=== PATIENT | male | born 1965 | race Caucasian/White ===

== ENCOUNTER 2016-07-28 22:57 | Emergency (ER) | payer SELFPAY ==
[2016-07-28 23:31] LABS: EOSINOPHILS % 2.2 % (0.0-6.8); MEAN CORPUSCULAR HEMOGLOBIN 30.8 pg (28.0-34.0); MEAN CORPUSCULAR VOLUME 89.9 fl (80.0-100.0); MONOCYTES % 4.6 % (0.0-11.0)
[2016-07-28 23:43] LABS: eGFR (African) > 60; eGFR (Non-African) > 60
--- NOTE | 2016-07-29 00:15 | ED Physician Documentation ---
Chest Pain - HISTORIAN Historian: patient, spouse - HPI Stated Complaint: chest pain t Chief Complaint: Chest Pain Additional Information: 2 episodes very brief sharp mid chest pains lasting 3-5 seconds each-totally gone after that and now. pt has hx ihd w/stent Onset: hours Timing: sudden onset, gone now, resolved on arrival to ED Duration: other (3-5 sec) Last known Well Date: 07/29/16 Last Known Well Time: 22:00 Context: onset during: (on way to bed) Severity: mild, moderate Quality: sharp, stabbing. denies: like prior [place] Chest Pain Radiation: no radiation Chest Pain Signs/Symptoms: denies: nausea, vomiting, diaphoresis, cool extremities, dyspnea - ROS CONST: no problems (ran bobcat all day today) MS/LYMPH: none GI/: none EYES/ENT: none SKIN/ENDO: none NEURO/PSYCH: none - PAST HX [place] risk factors: cardiac disease DVT/PE Risk Factors: denies: leg swelling Neuro deficit: none GI disease: GERD Surgeries/Procedures: cardiac stent Allergies/Adverse Reactions: Allergies Allergy/AdvReac Type Severity Reaction Status Date / Time No Known Allergies Allergy Verified 07/28/16 23:20 Home Medications: Ambulatory Orders Medication Instructions Recorded Aspirin [Panchito] 81 mg PO DAILY 09/20/15 Atorvastatin Calcium [Lipitor] 80 mg PO HS 09/20/15 Clopidogrel Bisulfate [Plavix] 75 mg PO QD 09/20/15 Fenofibrate,Micronized 130 mg PO QDAY 07/28/16 [Fenofibrate] - SOCIAL HX Smoking History: greater than 1 pack/day Alcohol Use: rarely Drug Use: none - FAMILY HX Family HX: none - VITAL SIGNS Vital Signs: Vital Signs Temp Pulse Resp BP Pulse Ox 97.5 F L 55 L 16 144/77 96 07/28/16 23:05 07/28/16 23:30 07/28/16 23:05 07/28/16 23:05 07/28/16 23:30 - REVIEWED ASSESSMENTS Nursing Assessment Reviewed: Yes Vitals Reviewed: Yes ED Results Lab/Radiology - Lab Results Lab Results: Lab Results 07/28/16 07/28/16 07/28/16 23:24 23:24 23:23 WBC 9.50 K/ul K/ul (4.00-12.00) RBC 4.82 M/ul M/ul (3.90-5.20) Hgb 14.9 g/dL g/dL (12.0-18.0) Hct 43.3 % % (37.0-53.0) MCV 89.9 fl fl (80.0-100.0) MCH 30.8 pg pg (28.0-34.0) MCHC 34.3 g/dL g/dL (30.0-36.0) RDW 13.1 % % (11.3-14.3) Plt Count 259 K/mm3 K/mm3 (130-400) Neut % (Auto) 63.0 % % (39.0-79.0) Lymph % (Auto) 27.8 % % (16.0-50.0) [place] % (Auto) 4.6 % % (0.0-11.0) Eos % (Auto) 2.2 % % (0.0-6.8) Baso % (Auto) 1.0 (0.0-1.5) Neut # 6.0 # k/uL # k/uL (1.4-7.7) Lymph # 2.6 # k/uL # k/uL (0.6-4.0) [place] # 0.4 # k/uL # k/uL (0.0-0.9) Eos # 0.2 # k/uL # k/uL (0.0-0.6) Baso # 0.1 # k/uL # k/uL (0.0-0.5) Reactive Lymphs % 1.5 % % (0.0-5.0) Reactive Lymphs # 0.1 # k/uL # k/uL (0.0-0.8) PT INR Sodium 142 mmol/L mmol/L (136-145) Potassium 3.5 mmol/L mmol/L (3.5-5.0) Chloride 107 mmol/L mmol/L (98-110) Carbon Dioxide 29 mmol/L mmol/L (20-32) BUN 12 mg/dL mg/dL (10-26) Creatinine 0.8 mg/dL mg/dL (0.4-1.5) Estimated Creat Clear 136 Est GFR ( Amer) > 60 (60 - ) Est GFR (Non-Af Amer) > 60 (60 - ) Glucose 107 mg/dL H mg/dL (70-99) Calcium 9.3 mg/dL mg/dL (8.5-10.5) Total Bilirubin 0.2 mg/dL mg/dL (0.2-1.2) AST 26 U/L U/L (0-41) ALT 20 U/L U/L (0-45) Alkaline Phosphatase 71 U/L U/L (46-116) Troponin I < 0.03 ng/mL L ng/mL (0.03-0.06) Total Protein 7.6 g/dL g/dL (6.0-8.5) Albumin 4.7 g/dL g/dL (3.0-5.5) 07/28/16 23:20 WBC RBC Hgb Hct MCV MCH MCHC RDW Plt Count Neut % (Auto) Lymph % (Auto) [place] % (Auto) Eos % (Auto) Baso % (Auto) Neut # Lymph # [place] # Eos # Baso # Reactive Lymphs % Reactive Lymphs # PT 10.1 Seconds Seconds (9.7-11.5) INR 1.0 (0.9-1.1) Sodium Potassium Chloride Carbon Dioxide BUN Creatinine Estimated Creat Clear Est GFR ( Amer) Est GFR (Non-Af Amer) Glucose Calcium Total Bilirubin AST ALT Alkaline Phosphatase Troponin I Total Protein Albumin - Radiology Radiology Impressions: copd - Orders Orders: ED Orders Category Date Time Status Continuous EKG monitoring Q1H Care 07/28/16 23:39 Active Continuous Pulse Oximetry Q1H Care 07/28/16 23:39 Active CHEST 2 VIEW [CHEST P.A.&LAT 2 VIEWS] [RAD] Stat Exams 07/28/16 Ordered CBC/PLATELET/DIFF Routine Lab 07/28/16 23:24 Completed CMP Routine Lab 07/28/16 23:24 Completed PT-INR Routine Lab 07/28/16 23:20 Completed TROPONIN I (cTnI) Stat Lab 07/28/16 23:23 Completed EKG WITH COMPARISON Stat Ther 07/28/16 Ordered Chest Pain Physical Exam - EXAM General Appearance: no acute distress, anxious EENT: eye inspection normal Neck: nml inspection (very slight jvd) CVS: reg. rate & rhythm, no murmur Abdomen: soft, non-tender Skin: warm/dry, normal color. No: cyanosis, diaphoresis, jaundice, mottled Extremities: non-tender, normal range of motion, no edema Neuro: oriented X3, motor nml, sensation nml, mood/affect nml Discharge Clincal Impression: Atypical chest pain Referrals: Primary Doctor,No [Primary Care Provider] - 2 Days Home Medications: Ambulatory Orders Aspirin [Panchito] 81 mg PO DAILY 09/20/15 Atorvastatin Calcium [Lipitor] 80 mg PO HS 09/20/15 Clopidogrel Bisulfate [Plavix] 75 mg PO QD 09/20/15 Fenofibrate,Micronized [Fenofibrate] 130 mg PO QDAY 07/28/16 Condition: Good Disposition: 01 HOME, SELF-CARE Decision to Admit: NO Decision Time: 00:14
[2016-07-29 00:18] VITALS: BP 131/68
--- NOTE | 2016-07-29 05:30 | Diagnostic Imaging Report ---
SARABJIT MARIE [facility] [address] [facility].[address] 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 There is no mass infiltrate or pleural effusions. Thoracic spondylosis is present. There is resection of the distal right clavicle. Calcified granulomas are present in the right midlung. Impression: Hyperinflation No acute infiltrate Electronically signed on July 28, 2016 11:51:03 PM CDT by: Omega YATES
== END 2016-07-29 00:05 | disposition home or self-care (01) ==
LOC: ED 22:57
DX: R07.89 Other chest pain (principal); F17.210 Nicotine dependence, cigarettes, uncomplicated
CPT/HCPCS: 71020; 80053; 84484; 85025; 85610; 99283; 99284; S1016

== ENCOUNTER 2016-09-07 00:39 | Emergency (ER) | payer SELFPAY ==
[2016-09-07] MEDS ORDERED: ASPIRIN 81 MG CHEW TAB ONE (00:48)
[2016-09-07] MEDS: ASPIRIN 81 MG CHEW TAB PO ONE (00:50)
[2016-09-07 01:19] LABS: BASOPHILS % 0.8 (0.0-1.5); EOSINOPHILS % 2.7 % (0.0-6.8); MEAN CORPUSCULAR HEMOGLOBIN 30.8 pg (28.0-34.0); MEAN CORPUSCULAR VOLUME 89.9 fl (80.0-100.0); MONOCYTES % 5.4 % (0.0-11.0); NEUTROPHILS # 5.6 # k/uL (1.4-7.7)
[2016-09-07 01:31] LABS: eGFR (African) > 60; eGFR (Non-African) > 60
--- NOTE | 2016-09-07 02:28 | ED Physician Documentation ---
Chest Pain - HISTORIAN Historian: patient - HPI Stated Complaint: chest pain Chief Complaint: Chest Pain Additional Information: just switched from omeprazole to 150 mg zantac for gerd yesterday, not working as well Onset: minutes (60) Timing: sudden onset Duration: sudden-onset Last known Well Date: 09/07/16 Last Known Well Time: 00:00 Context: activity Severity: moderate Quality: burning Chest Pain Radiation: neck (anterior) Chest Pain Signs/Symptoms: denies: nausea, vomiting, diaphoresis, dizziness, dyspnea, tachypnea Worsened By: movement Relieved By: nothing Further Comments: no - ROS CONST: none MS/LYMPH: none GI/: none EYES/ENT: none SKIN/ENDO: none NEURO/PSYCH: none - PAST HX [place] risk factors: hypertension, other (hx of mi, asthma, depression) GI disease: GERD Lung disease: none Allergies/Adverse Reactions: Allergies Allergy/AdvReac Type Severity Reaction Status Date / Time No Known Allergies Allergy Verified 09/07/16 00:51 Home Medications: Ambulatory Orders Medication Instructions Recorded Aspirin [Panchito] 81 mg PO DAILY 09/20/15 Atorvastatin Calcium [Lipitor] 80 mg PO HS 09/20/15 Clopidogrel Bisulfate [Plavix] 75 mg PO QD 09/20/15 Fenofibrate,Micronized 130 mg PO QDAY 07/28/16 [Fenofibrate] Albuterol Sulfate [Proair HFA] 1 inh IH QDAY PRN 09/07/16 Ranitidine HCl 150 mg PO QDAY 09/07/16 - SOCIAL HX Smoking History: cigarettes Alcohol Use: none Drug Use: none - FAMILY HX Family HX: none - VITAL SIGNS Vital Signs: Vital Signs Temp Pulse Resp BP Pulse Ox 97.8 F 66 16 183/72 95 09/07/16 00:40 09/07/16 01:30 09/07/16 00:40 09/07/16 00:40 09/07/16 01:30 - REVIEWED ASSESSMENTS Nursing Assessment Reviewed: Yes Vitals Reviewed: Yes Progress - Results/Orders Results/Orders: cbc, cmp, trop, ekg, cxr ordered - Progress Progress: pt. given asa 324 mg p.o. in er Critical Care Note - Critical Care Note Total Time (mins): 0 ED Results Lab/Radiology - Lab Results Lab Results: Lab Results 09/07/16 09/07/16 09/07/16 01:14 01:14 01:14 WBC 8.80 K/ul K/ul (4.00-12.00) RBC 4.70 M/ul M/ul (3.90-5.20) Hgb 14.5 g/dL g/dL (12.0-18.0) Hct 42.2 % % (37.0-53.0) MCV 89.9 fl fl (80.0-100.0) MCH 30.8 pg pg (28.0-34.0) MCHC 34.3 g/dL g/dL (30.0-36.0) RDW 13.5 % % (11.3-14.3) Plt Count 253 K/mm3 K/mm3 (130-400) Neut % (Auto) 64.5 % % (39.0-79.0) Lymph % (Auto) 24.8 % % (16.0-50.0) [place] % (Auto) 5.4 % % (0.0-11.0) Eos % (Auto) 2.7 % % (0.0-6.8) Baso % (Auto) 0.8 (0.0-1.5) Neut # (Auto) 5.6 # k/uL # k/uL (1.4-7.7) Lymph # (Auto) 2.2 # k/uL # k/uL (0.6-4.0) [place] # (Auto) 0.5 # k/uL # k/uL (0.0-0.9) Eos # (Auto) 0.2 # k/uL # k/uL (0.0-0.6) Baso # (Auto) 0.1 # k/uL # k/uL (0.0-0.5) Reactive Lymphs % 1.8 % % (0.0-5.0) Reactive Lymphs # 0.2 # k/uL # k/uL (0.0-0.8) Sodium 145 mmol/L mmol/L (136-145) Potassium 3.6 mmol/L mmol/L (3.5-5.0) Chloride 107 mmol/L mmol/L (98-110) Carbon Dioxide 30 mmol/L mmol/L (20-32) BUN 17 mg/dL mg/dL (10-26) Creatinine 1.0 mg/dL mg/dL (0.4-1.5) Estimated Creat Clear 110 Est GFR ( Amer) > 60 (60 - ) Est GFR (Non-Af Amer) > 60 (60 - ) Glucose 143 mg/dL H mg/dL (70-99) Calcium 9.7 mg/dL mg/dL (8.5-10.5) Total Bilirubin 0.3 mg/dL mg/dL (0.2-1.2) AST 22 U/L U/L (0-41) ALT 19 U/L U/L (0-45) Alkaline Phosphatase 79 U/L U/L (46-116) Troponin I < 0.03 ng/mL L ng/mL (0.03-0.06) Total Protein 7.4 g/dL g/dL (6.0-8.5) Albumin 4.8 g/dL g/dL (3.0-5.5) - Radiology Radiology Impressions: cxr neg - Orders Orders: ED Orders Category Date Time Status Continuous EKG monitoring Q30M Care 09/07/16 00:47 Active Continuous Pulse Oximetry Q30M Care 09/07/16 00:[address] IV Lock 1T Care 09/07/16 01:02 Active CHEST 1 VIEW [RAD] Stat Exams 09/07/16 00:47 Ordered CBC/PLATELET/DIFF Routine Lab 09/07/16 01:14 Completed CMP Routine Lab 09/07/16 01:14 Completed TROPONIN I (cTnI) Stat Lab 09/07/16 01:14 Completed Aspirin Med 09/07/16 00:48 Discontinued 324 mg .ROUTE .STK-MED ONE Aspirin Med 09/07/16 00:47 Discontinued 324 mg PO NOW ONE EKG WITH COMPARISON Stat Ther 09/07/16 00:47 Ordered Chest Pain Physical Exam - EXAM General Appearance: no acute distress, alert EENT: eye inspection normal, ENT inspection normal, pharynx normal, no signs of dehydration, VANESSA, no nystagmus Neck: nml inspection, no carotid bruit Respiratory: no resp. distress, nml breath sounds, other (tenderness lower midsternal area reproducing chest pain) CVS: reg. rate & rhythm Abdomen: soft, no organomegaly, normal bowel sounds, no abdominal bruit, no distension, tenderness (epigastrium) Skin: warm/dry, normal color Extremities: non-tender, normal range of motion, no evidence of injury, no edema Neuro: oriented X3, CN's nml as tested, motor nml, sensation nml, mood/affect nml, cognition normal Discharge Clincal Impression: GERD (gastroesophageal reflux disease) Qualifiers: Esophagitis presence: with esophagitis Qualified Code(s): K21.0 - Gastro- esophageal reflux disease with esophagitis Referrals: Primary Doctor,No [Primary Care Provider] - 2 Days Home Medications: Ambulatory Orders Aspirin [Panchito] 81 mg PO DAILY 09/20/15 Atorvastatin Calcium [Lipitor] 80 mg PO HS 09/20/15 Clopidogrel Bisulfate [Plavix] 75 mg PO QD 09/20/15 Fenofibrate,Micronized [Fenofibrate] 130 mg PO QDAY 07/28/16 Albuterol Sulfate [Proair HFA] 1 inh IH QDAY PRN 09/07/16 Ranitidine HCl 150 mg PO QDAY 09/07/16 Comments: pt. discharged with recommendation to continue ranitidine and discuss with his primary care provider on Friday Condition: Stable Disposition: HOME, SELF-CARE Decision to Admit: NO Decision Time: 01:50
[2016-09-07 02:29] VITALS: BP 146/74
--- NOTE | 2016-09-07 06:24 | Diagnostic Imaging Report ---
GELACIO DUNAWAY~ [facility] [address] [facility].[address] [address] ~ ~ ~ ~ Report Submission Date: Sep 07, 2016 1:29:13 AM CDT Patient ~ Study Name: STEPHEN AZUL ~ Date: Sep 07, 2016 1:17:17 AM CDT ~ Modality Type: CR Gender: M ~ Description: CHEST : 63 ~ Institution: [facility] Physician: GELACIO DUNAWAY ~ ~ ~ ~ Portable chest History: Chest pain Findings: The lungs are clear. No pleural effusions are observed. Calcified granulomas are noted. Heart size and pulmonary vascularity are normal. Impression: Old granulomatous disease without acute abnormality. No change since the 07/28/2016 exam. ~ Electronically signed on Sep 07, 2016 1:29:13 AM CDT by: José Luis YATES
== END 2016-09-07 02:00 | disposition home or self-care (01) ==
LOC: ED 00:39
DX: K21.0 Gastro-esophageal reflux disease with esophagitis (principal)
CPT/HCPCS: 71010; 80053; 84484; 85025; 99283; S1016

== ENCOUNTER 2016-10-09 04:47 | Emergency (ER) | payer SELFPAY ==
[2016-10-09 05:10] VITALS: BP 137/75
[2016-10-09] MEDS ORDERED: CEPHALEXIN 250 MG CAPSULE PO ONE (05:13)
[2016-10-09] MEDS ORDERED: HYDROcodone /APAP 5/325 1 EACH TABLET PO ONE (05:13)
[2016-10-09] MEDS ORDERED: CEPHALEXIN 250 MG CAPSULE ONE (05:15)
--- NOTE | 2016-10-09 05:16 | ED Physician Documentation ---
General Adult - HISTORIAN Historian: patient - HPI Stated Complaint: Right upper tooth pain Chief Complaint: Dental Pain Onset: days ago Timing: still present Severity: moderate Further Comments: yes (Pt is a 51 yo male with dental pain that began yesterday. Pt has poor dentition. No fever.) - ROS CONST: no problems EYES/ENT: other (dental pain) CVS/RESP: none GI/: none MS/SKIN/LYMPH: none - PAST HX Past History: other (HTN, MD, Asthma, Depression, GERD.) Allergies/Adverse Reactions: Allergies Allergy/AdvReac Type Severity Reaction Status Date / Time No Known Allergies Allergy Verified 10/09/16 05:03 Home Medications: Ambulatory Orders Medication Instructions Recorded Aspirin [Panchito] 81 mg PO DAILY 09/20/15 Atorvastatin Calcium [Lipitor] 80 mg PO HS 09/20/15 Clopidogrel Bisulfate [Plavix] 75 mg PO QD 09/20/15 Fenofibrate,Micronized 130 mg PO QDAY 07/28/16 [Fenofibrate] Albuterol Sulfate [Proair HFA] 1 inh IH QDAY PRN 09/07/16 Ranitidine HCl 150 mg PO QDAY 09/07/16 - SOCIAL HX Smoking History: cigarettes - FAMILY HX Family History: No - VITAL SIGNS Vital Signs: Vital Signs Temp Pulse Resp BP Pulse Ox 99.6 F 63 16 137/75 93 10/09/16 04:58 10/09/16 04:58 10/09/16 04:58 10/09/16 04:58 10/09/16 04:58 - REVIEWED ASSESSMENTS Nursing Assessment Reviewed: Yes Vitals Reviewed: Yes Progress - Progress Progress: Rx Keflex 500 mg. Take one every 8 hrs for 10 days. Rx [place] (5/325). Take one or two every 4 to 6 hrs as needed for moderate to severe pain. Pt has dental appt on 10/15/16. ED Results Lab/Radiology - Orders Orders: ED Orders Category Date Time Status Cephalexin [Keflex] Med 10/09/16 05:13 Once 500 mg PO NOW ONE HYDROcodone /APAP 5/325 [[place] 5/325] Med 10/09/16 05:13 Once 2 each PO NOW ONE General Adult Physical Exam - PHYSICAL EXAM GENERAL APPEARANCE: mild distress EENT: other (poor dentition; tenderness R upper jaw) NECK: normal inspection, supple RESPIRATORY: no resp distress, chest non-tender, breath sounds normal CVS: reg rate & rhythm BACK: normal inspection SKIN: warm/dry EXTREMITIES: normal range of motion NEURO: oriented X3 Discharge Clincal Impression: Dental pain Referrals: Ana Ascencio MD [Primary Care Provider] - Home Medications: Ambulatory Orders Aspirin [Panchito] 81 mg PO DAILY 09/20/15 Atorvastatin Calcium [Lipitor] 80 mg PO HS 09/20/15 Clopidogrel Bisulfate [Plavix] 75 mg PO QD 09/20/15 Fenofibrate,Micronized [Fenofibrate] 130 mg PO QDAY 07/28/16 Albuterol Sulfate [Proair HFA] 1 inh IH QDAY PRN 09/07/16 Ranitidine HCl 150 mg PO QDAY 09/07/16 Condition: Good Disposition: 01 HOME, SELF-CARE Decision to Admit: NO Decision Time: 05:22
== END 2016-10-09 05:25 | disposition home or self-care (01) ==
LOC: ED 04:47
DX: K08.89 Other specified disorders of teeth and supporting structures (principal)
CPT/HCPCS: 99283; A9270-GY

== ENCOUNTER 2016-12-14 22:22 | Emergency (ER) | payer SELFPAY ==
--- NOTE | 2016-12-14 22:54 | ED Physician Documentation ---
General Adult - HISTORIAN Historian: patient, spouse - HPI Stated Complaint: chest pain Chief Complaint: General Adult Further Comments: yes (51 year old male patient present with complaints of intermittent chest pain for the past 3 days. Patient has not used his nitroglycerin SL. Denies SOB, diaphoresis or nausea. Cannot recall when pain started. Worse with palpation.) - ROS CONST: no problems EYES/ENT: none CVS/RESP: none GI/: none MS/SKIN/LYMPH: none NEURO/PSYCH: denies: headache - PAST HX Past History: COPD, hypertension, other (HLD, hx [place], GERD) Allergies/Adverse Reactions: Allergies Allergy/AdvReac Type Severity Reaction Status Date / Time No Known Allergies Allergy Verified 12/14/16 23:01 Home Medications: Ambulatory Orders Medication Instructions Recorded Aspirin [Panchito] 81 mg PO DAILY 09/20/15 Atorvastatin Calcium [Lipitor] 80 mg PO HS 09/20/15 Clopidogrel Bisulfate [Plavix] 75 mg PO QD 09/20/15 Fenofibrate,Micronized 130 mg PO QDAY 07/28/16 [Fenofibrate] Albuterol Sulfate [Proair HFA] 1 inh IH QDAY PRN 09/07/16 Lansoprazole [Heartburn Treatment 15 mg PO D 12/14/16 24 Hour] - SOCIAL HX Smoking History: cigarettes - FAMILY HX Family History: No - VITAL SIGNS Vital Signs: Vital Signs Temp Pulse Resp BP Pulse Ox 137/75 10/09/16 04:58 - REVIEWED ASSESSMENTS Nursing Assessment Reviewed: Yes Vitals Reviewed: Yes Progress - Progress Progress: Extremely poor personal hygiene. Patient states he does not take his PRN nitroglycerin at home. states patient gets anxious any time he has CP. Offered pain injection. Patient refused. - EKG/XRAY/CT EKG: rhythm (SR, rate 70, no acute changes) ED Results Lab/Radiology - Radiology Radiology Impressions: Chest 2 views History: Chest pain Findings: The distal right clavicle has been resected. Scattered calcified granulomas are observed. The lungs are otherwise clear. There is no pleural effusion. Heart size and pulmonary vascularity are normal. A noncalcified nodule or right nipple shadow projects between the right anterior 5th and 6th ribs. This is new since the September 07, 2016 film. Impression: 1. New noncalcified right lung nodule versus nipple shadow. Recommend a PA chest radiograph with right nipple marker. 2. Old granulomatous disease again noted. Electronically signed on Dec 14, 2016 11:14:59 PM CDT by: José Luis London Single view chest with nipple markers History: Right lung nodule versus a nipple shadow Findings: A right nipple shadow is confirmed as the etiology for the nodular opacity observed on the preceding chest radiograph. A left nipple shadow is also noted. Calcified granulomas and distal right clavicle resection are observed. Heart size is normal. There is no infiltrate or pleural effusion. Impression: Bilateral nipple shadows and old granulomatous disease. No lung nodule observed. Electronically signed on Dec 14, 2016 11:44:48 PM CDT by: José Luis London - Orders Orders: ED Orders Category Date Time Status CHEST 2 VIEW [CHEST P.A.&LAT 2 VIEWS] [RAD] Stat Exams 12/14/16 Ordered TROPONIN I (cTnI) Stat Lab 12/14/16 22:44 Received General Adult Physical Exam - PHYSICAL EXAM GENERAL APPEARANCE: mild distress EENT: eye inspection normal, VANESSA RESPIRATORY: no resp distress, breath sounds normal, other (chest wall tenderness to palpation) CVS: reg rate & rhythm, heart sounds normal, equal pulses, no murmur, no gallop , PMI nml, no JVD, no friction rub, 24 ABDOMEN: soft, no organomegaly, normal bowel sounds, no abdominal bruit, no distension BACK: normal inspection, no CVA tenderness SKIN: normal color, warm/dry, NR, INT, PAL, DR EXTREMITIES: non-tender, normal range of motion, no evidence of injury, no edema , J, [employer] MAINTENANCE SUPERVISOR NEURO: oriented X3, CN's nml as tested, motor nml, sensation nml, mood/affect nml Discharge Clincal Impression: Non-cardiac chest pain, Myalgia Referrals: Ana Ascencio MD [Primary Care Provider] - 2 Days Additional Instructions: Rest You may use Tylenol every 4hour as needed for pain. Limit your dose to less than 4 G per day. Return to Er if you have Chest pain WITH shortness of breath, pain radiates to your jaw or shoulders, diaphoresis, and nausea and vomiting Condition: Stable Disposition: 01 HOME, SELF-CARE Decision to Admit: NO Decision Time: 23:48
--- NOTE | 2016-12-14 23:19 | Diagnostic Imaging Report ---
CJ MENDEZ (SUNITHA) - ER [facility] [address] [facility].[address] [address] Report Submission Date: Dec 14, 2016 11:14:59 PM CDT Patient Study Name: STEPHEN AZUL Date: Dec 14, 2016 10:51:52 PM CDT Modality Type: CR Gender: M Description: CHEST : 63 Institution: [facility] Physician: CJ MENDEZ (SUNITHA) - ER Chest 2 views History: Chest pain Findings: The distal right clavicle has been resected. Scattered calcified granulomas are observed. The lungs are otherwise clear. There is no pleural effusion. Heart size and pulmonary vascularity are normal. A noncalcified nodule or right nipple shadow projects between the right anterior 5th and 6th ribs. This is new since the September 07, 2016 film. Impression: 1. New noncalcified right lung nodule versus nipple shadow. Recommend a PA chest radiograph with right nipple marker. 2. Old granulomatous disease again noted. Electronically signed on Dec 14, 2016 11:14:59 PM CDT by: José Luis YATES
--- NOTE | 2016-12-14 23:47 | Diagnostic Imaging Report ---
CJ MENDEZ (SUNITHA) - ER [facility] [address] [address] Report Submission Date: Dec 14, 2016 11:44:48 PM CDT Patient Study Name: STEPHEN AZUL Date: Dec 14, 2016 11:21:09 PM CDT Modality Type: CR Gender: M Description: CHEST : 63 Institution: [facility] Physician: CJ MENDEZ) - ER Single view chest with nipple markers History: Right lung nodule versus a nipple shadow Findings: A right nipple shadow is confirmed as the etiology for the nodular opacity observed on the preceding chest radiograph. A left nipple shadow is also noted. Calcified granulomas and distal right clavicle resection are observed. Heart size is normal. There is no infiltrate or pleural effusion. Impression: Bilateral nipple shadows and old granulomatous disease. No lung nodule observed. Electronically signed on Dec 14, 2016 11:44:48 PM CDT by: José Luis YATES
[2016-12-15 00:03] VITALS: BP 137/82
== END 2016-12-14 23:55 | disposition home or self-care (01) ==
LOC: ED 22:22
DX: R07.89 Other chest pain (principal); M79.1 Myalgia
CPT/HCPCS: 71010; 71020; 84484; 99283; S1016

== ENCOUNTER 2017-06-05 21:11 | Emergency (ER) | payer SELFPAY ==
[2017-06-05 21:30] LABS: BASOPHILS % 0.8 (0.0-1.5); EOSINOPHILS % 3.3 % (0.0-6.8); MEAN CORPUSCULAR VOLUME 89.9 fl (80.0-100.0); MONOCYTES % 4.9 % (0.0-11.0); NEUTROPHILS # 5.4 # k/uL (1.4-7.7)
[2017-06-05 21:42] LABS: eGFR (African) > 60; eGFR (Non-African) > 60
--- NOTE | 2017-06-05 21:52 | ED Physician Documentation ---
Chest Pain - HISTORIAN Historian: patient, spouse - HPI Stated Complaint: CHEST PAIN Chief Complaint: Chest Pain Onset: minutes Timing: sudden onset Last known Well Date: 06/05/17 Last Known Well Time: 20:00 Context: rest (sitting in chair) Severity: mild Quality: denies: like prior CA Chest Pain Radiation: no radiation Chest Pain Signs/Symptoms: denies: nausea, vomiting, diaphoresis Worsened By: nothing Relieved By: nothing Further Comments: yes (52 year old male patient presents with complaint of pain in upper chest. Patient states he was sitting in the chair watch TV when the pain began. He took 5 baby aspirin and 1 nitro. On arrival to ER, patient denies any pain. 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) Allergies/Adverse Reactions: Allergies Allergy/AdvReac Type Severity Reaction Status Date / Time No Known Allergies Allergy Verified 06/05/17 21:33 Home Medications: Ambulatory Orders Medication Instructions Recorded Aspirin [Panchito] 81 mg PO DAILY 09/20/15 Atorvastatin Calcium [Lipitor] 80 mg PO HS 09/20/15 Clopidogrel Bisulfate [Plavix] 75 mg PO QD 09/20/15 Fenofibrate,Micronized 130 mg PO QDAY 07/28/16 [Fenofibrate] Albuterol Sulfate [Proair HFA] 1 inh IH QDAY PRN 09/07/16 Lansoprazole [Heartburn Treatment 15 mg PO D 12/14/16 24 Hour] - SOCIAL HX Smoking History: cigarettes - FAMILY HX Family HX: denies: none - VITAL SIGNS Vital Signs: Vital Signs Temp Pulse Resp BP Pulse Ox 98.2 F 65 18 141/74 97 06/05/17 21:12 06/05/17 21:20 06/05/17 21:12 06/05/17 21:12 06/05/17 21:20 - REVIEWED ASSESSMENTS Nursing Assessment Reviewed: Yes Vitals Reviewed: Yes Progress - Progress Progress: Old records reviewed. History discussed with patient and . Patient missed last cardiology appointment and did not follow up. Strong smell of cigarette smoke. - EKG/XRAY/CT EKG: NSR (Rate 62) ED Results Lab/Radiology - Lab Results Lab Results: Lab Results 06/05/17 06/05/17 06/05/17 21:20 21:20 21:20 WBC 8.80 K/ul K/ul (4.00-12.00) RBC 4.75 M/ul M/ul (3.90-5.20) Hgb 14.3 g/dL g/dL (12.0-18.0) Hct 42.7 % % (37.0-53.0) MCV 89.9 fl fl (80.0-100.0) MCH 30.0 pg pg (28.0-34.0) MCHC 33.4 g/dL g/dL (30.0-36.0) RDW 13.2 % % (11.3-14.3) Plt Count Pending Neut % (Auto) 61.8 % % (39.0-79.0) Lymph % (Auto) 27.7 % % (16.0-50.0) [place] % (Auto) 4.9 % % (0.0-11.0) Eos % (Auto) 3.3 % % (0.0-6.8) Baso % (Auto) 0.8 (0.0-1.5) Neut # (Auto) 5.4 # k/uL # k/uL (1.4-7.7) Lymph # (Auto) 2.4 # k/uL # k/uL (0.6-4.0) [place] # (Auto) 0.4 # k/uL # k/uL (0.0-0.9) Eos # (Auto) 0.3 # k/uL # k/uL (0.0-0.6) Baso # (Auto) 0.1 # k/uL # k/uL (0.0-0.5) Reactive Lymphs % 1.4 % % (0.0-5.0) Reactive Lymphs # 0.1 # k/uL # k/uL (0.0-0.8) Sodium 141 mmol/L mmol/L (136-145) Potassium 3.5 mmol/L mmol/L (3.5-5.1) Chloride 103 mmol/L mmol/L (98-107) Carbon Dioxide 25 mmol/L mmol/L (22-30) BUN 14 mg/dL mg/dL (9-20) Creatinine 1.00 mg/dL mg/dL (0.66-1.25) Estimated Creat Clear 109 Est GFR ( Amer) > 60 (60 - ) Est GFR (Non-Af Amer) > 60 (60 - ) Glucose 122 mg/dL H mg/dL (74-106) Calcium 8.9 mg/dL mg/dL (8.4-10.2) Total Bilirubin 0.6 mg/dL mg/dL (0.2-1.3) AST 28 U/L U/L (15-46) ALT 32 U/L U/L (13-69) Alkaline Phosphatase 80 U/L U/L (38-126) Troponin I < 0.03 ng/mL L ng/mL (0.03-0.06) Total Protein 7.0 g/dL g/dL (6.3-8.2) Albumin 4.3 g/dL g/dL (3.5-5.0) - Orders Orders: ED Orders Category Date Time Status Continuous EKG monitoring Q30M Care 06/05/17 21:20 Active Continuous Pulse Oximetry Q30M Care 06/05/17 21:[address] IV Lock 1T Care 06/05/17 21:15 Active CBC/PLATELET/DIFF Stat Lab 06/05/17 21:20 Results CMP Stat Lab 06/05/17 21:20 Completed TROPONIN I (cTnI) Stat Lab 06/05/17 21:20 Completed EKG WITH COMPARISON Stat Ther 06/05/17 21:15 Ordered Chest Pain Physical Exam - EXAM General Appearance: no acute distress, alert EENT: eye inspection normal, VANESSA Respiratory: no resp. distress, nml breath sounds, other (chest tender with palpation) CVS: reg. rate & rhythm, no murmur, no gallop, no friction rub, pulses full, pulses equal Abdomen: soft, no organomegaly, normal bowel sounds, no abdominal bruit, no distension Skin: normal color, warm/dry, NR, INT, DR Extremities: non-tender, normal range of motion, no evidence of injury, no edema , J, CLIPPER MACHINE Neuro: oriented X3, CN's nml as tested, motor nml, sensation nml, mood/affect nml Discharge Clincal Impression: Non-cardiac chest pain, Smoker, Atypical chest pain Additional Instructions: Call Dr May office in the morning and make a follow up appointment. Return to ER if you symptoms become worse; or you have Chest pain with nausea, sweating all over, and shortness of breath. Continue all medications as prescribed. Condition: Stable Disposition: 01 HOME, SELF-CARE Decision to Admit: NO Decision Time: 21:58
[2017-06-05 22:08] VITALS: BP 131/68
== END 2017-06-05 22:06 | disposition home or self-care (01) ==
LOC: ED 21:11
DX: R07.9 Chest pain, unspecified (principal)
CPT/HCPCS: 80053; 84484; 85025; 99282; 99283; S1016

== ENCOUNTER 2018-01-17 19:00 | Emergency (ER) | payer SELFPAY ==
--- NOTE | 2018-01-17 19:21 | ED Physician Documentation ---
Upper Respiratory Symptoms - HISTORIAN Historian: patient - HPI Stated Complaint: cough, bodyaches Chief Complaint: Cough/ Upper Respiratory Additional Information: Patient presents with a 1 day history of dry cough and bodyaches. He denies fever, nasal congestion. Onset: hours (24) Duration: intermittent episodes Context: denies: recent foreign travel Severity: denies: moderate Associated Symptoms: chills. denies: fever, runny nose, sinus pain, sore throat - ROS CONST/EYES: weakness CVS/RESP: denies: chest pain, shortness of breath LYMPH: denies: leg swelling, swollen glands GI/: denies: abdominal pain, problems urinating, vomiting, nausea NEURO/PSYCH: denies: fainting, dizziness MS/SKIN: joint pain, muscle aches - PAST HX Lung Disease: COPD, other PE Risk Factors: hypertension Other History: other (CAD) Surgeries/Procedures: cardiac stent Allergies/Adverse Reactions: Allergies Allergy/AdvReac Type Severity Reaction Status Date / Time No Known Allergies Allergy Verified 01/17/18 20:47 Home Medications: Ambulatory Orders Medication Instructions Recorded Aspirin [Panchito] 81 mg PO DAILY 09/20/15 Atorvastatin Calcium [Lipitor] 80 mg PO HS 09/20/15 Clopidogrel Bisulfate [Plavix] 75 mg PO QD 09/20/15 Fenofibrate,Micronized 130 mg PO QDAY 07/28/16 [Fenofibrate] Albuterol Sulfate [Proair HFA] 1 inh IH QDAY PRN 09/07/16 Lansoprazole [Heartburn Treatment 15 mg PO D 12/14/16 24 Hour] predniSONE [Deltasone] 10 mg PO DIRECTED #20 tablet 01/17/18 - SOCIAL HX Smoking History: cigarettes, greater than 1 pack/day Alcohol Use: none Drug Use: none - FAMILY HX Family History: none - VITAL SIGNS Vital Signs: Vital Signs Temp Pulse Resp BP Pulse Ox 131/68 06/05/17 22:06 - REVIEWED ASSESSMENTS Nursing Assessment Reviewed: Yes Vitals Reviewed: Yes ED Results Lab/Radiology - Lab Results Lab Results: Lab Results 01/17/18 01/17/18 20:10 20:10 WBC 5.40 K/ul K/ul (4.00-12.00) RBC 4.95 M/ul M/ul (3.90-5.20) Hgb 14.8 g/dL g/dL (12.0-18.0) Hct 44.4 % % (37.0-53.0) MCV 90.0 fl fl (80.0-100.0) MCH 30.0 pg pg (28.0-34.0) MCHC 33.4 g/dL g/dL (30.0-36.0) RDW 13.0 % % (11.3-14.3) Plt Count 240 K/mm3 K/mm3 (130-400) Neut % (Auto) 56.8 % % (39.0-79.0) Lymph % (Auto) 27.1 % % (16.0-50.0) [place] % (Auto) 13.0 % H % (0.0-11.0) Eos % (Auto) 2.6 % % (0.0-6.8) Baso % (Auto) 0.5 (0.0-1.5) Neut # (Auto) 3.1 # k/uL # k/uL (1.4-7.7) Lymph # (Auto) 1.5 # k/uL # k/uL (0.6-4.0) [place] # (Auto) 0.7 # k/uL # k/uL (0.0-0.9) Eos # (Auto) 0.1 # k/uL # k/uL (0.0-0.6) Baso # (Auto) 0.0 # k/uL # k/uL (0.0-0.5) Sodium 143 mmol/L mmol/L (136-145) Potassium 3.8 mmol/L mmol/L (3.5-5.1) Chloride 105 mmol/L mmol/L (98-107) Carbon Dioxide 27 mmol/L mmol/L (22-30) BUN 19 mg/dL mg/dL (9-20) Creatinine 1.10 mg/dL mg/dL (0.66-1.25) Est GFR ( Amer) > 60 (60 - ) Est GFR (Non-Af Amer) > 60 (60 - ) Glucose 99 mg/dL mg/dL (74-106) Calcium 8.6 mg/dL mg/dL (8.4-10.2) Total Bilirubin 0.3 mg/dL mg/dL (0.2-1.3) AST 71 U/L H U/L (15-46) ALT 55 U/L U/L (13-69) Alkaline Phosphatase 71 U/L U/L (38-126) Total Protein 7.6 g/dL g/dL (6.3-8.2) Albumin 4.2 g/dL g/dL (3.5-5.0) - Radiology Radiology Impressions: Chest, two views History: Cough for 1 day. Findings: The heart size is normal. The lungs are clear. Calcified granulomas seen within the right and left upper lobe. No pleural effusion or pneumothorax identified. Impression: 1. No acute pulmonary disease. Electronically signed on Jan 17, 2018 8:29:41 PM DITTO MACHINE OPERATOR by: Vipul Lorenzo - Orders Orders: ED Orders Category Date Time Status Place IV Lock 1T Care 01/17/18 19:17 Active CHEST 2VIEW [RAD] Stat Exams 01/17/18 Completed CBC/PLATELET/DIFF Routine Lab 01/17/18 20:10 Completed CMP Routine Lab 01/17/18 20:10 Completed INFLUENZA A&B Stat Lab 01/17/18 Uncollected methylPREDNISolone SOD SUCC [Solu-MEDROL] Med 01/17/18 20:33 Discontinued 125 mg IVP NOW ONE Upper Respiratory Symptoms - EXAM General Appearance: no acute distress, alert Neck: supple Respiratory: no resp. distress, breath sounds nml Abdomen: non-tender CVS: heart sounds normal Skin: warm,dry Extremities: non-tender, no edema Neuro/Psych: oriented x3 Discharge Clincal Impression: Acute viral syndrome Prescriptions: predniSONE [Deltasone] 10 mg PO DIRECTED #20 tablet Referrals: Primary Doctor,No [Primary Care Provider] - 2 Days Decision to Admit: NO Date of Decison to Admit: 01/17/18 Decision Time: 21:24
[2018-01-17 20:13] LABS: BASOPHILS % 0.5 (0.0-1.5); EOSINOPHILS % 2.6 % (0.0-6.8); NEUTROPHILS # 3.1 # k/uL (1.4-7.7)
[2018-01-17 20:25] LABS: eGFR (Non-African) > 60
[2018-01-17] MEDS ORDERED: methylPREDNISolone SOD SUCC 125 MG/2 ML VIAL IVP ONE (20:33)
--- NOTE | 2018-01-17 20:38 | Diagnostic Imaging Report ---
AMY MCKEON [facility] [id number] [facility] [address] [place] [phone] [id number] Report Submission Date: Jan 17, 2018 8:29:41 PM WEB CONTENT MANAGER Patient Study Name: STEPHEN AZUL Date: Jan 17, 2018 8:09:15 PM WEB CONTENT MANAGER Modality Type: DX Gender: M Description: CHEST : 63 Institution: [facility] Physician: AMY MCKEON Chest, two views History: Cough for 1 day. Findings: The heart size is normal. The lungs are clear. Calcified granulomas seen within the right and left upper lobe. No pleural effusion or pneumothorax identified. Impression: 1. No acute pulmonary disease. Electronically signed on Jan 17, 2018 8:29:41 PM WEB CONTENT MANAGER by: Vipul YATES
[2018-01-17 23:41] VITALS: BP 126/87
== END 2018-01-17 21:35 | disposition home or self-care (01) ==
LOC: ED 19:00
DX: R05 Cough (principal); M79.10 Myalgia, unspecified site; F17.200 Nicotine dependence, unspecified, uncomplicated
CPT/HCPCS: 71046; 80053; 85025; 96374; 99283; J2930; S1016

== ENCOUNTER 2018-05-09 08:10 | Emergency (ER) | payer SELFPAY ==
--- NOTE | 2018-05-09 08:18 | ED Physician Documentation ---
General Adult - HISTORIAN Historian: patient - HPI Stated Complaint: cough Chief Complaint: Cough/ Upper Respiratory Onset: days ago (7) Timing: still present Severity: mild Further Comments: yes (He states over a week ago he started with a cough that is productive and he feels initally he was running a fever. he continues to have cough, fatigue and chills. No measured temp. He has some abdomen "sore" ness - he feels from coughing and "drinking NyQuil". His presents with him with similar symptoms. Hers started one day ago. No other complaints. He is a smoker) - ROS CONST: fever, sweating, weakness EYES/ENT: none CVS/RESP: cough. denies: chest pain, shortness of breath GI/: abdominal pain. denies: problems urinating, vomiting, nausea, diarrhea MS/SKIN/LYMPH: none NEURO/PSYCH: headache - PAST HX Past History: AMI Surgeries/Procedures: cardiac stent Immunizations: UTD Allergies/Adverse Reactions: Allergies Allergy/AdvReac Type Severity Reaction Status Date / Time No Known Allergies Allergy Verified 05/09/18 08:44 Home Medications: Ambulatory Orders Medication Instructions Recorded Aspirin [Panchito] 81 mg PO DAILY 09/20/15 Atorvastatin Calcium [Lipitor] 80 mg PO HS 09/20/15 Clopidogrel Bisulfate [Plavix] 75 mg PO QD 09/20/15 Fenofibrate,Micronized 130 mg PO QDAY 07/28/16 [Fenofibrate] Lansoprazole [Heartburn Treatment 15 mg PO D 12/14/16 24 Hour] - SOCIAL HX Smoking History: cigarettes Alcohol Use: none Drug Use: none - FAMILY HX Family History: No - VITAL SIGNS Vital Signs: Vital Signs Temp Pulse Resp BP Pulse Ox 126/87 01/17/18 19:05 - REVIEWED ASSESSMENTS Nursing Assessment Reviewed: Yes Vitals Reviewed: Yes Progress - Progress Progress: 0915: wheezing improved post neb. DG 1000: discussed results and plan.He is agreeable DG ED Results Lab/Radiology - Radiology Radiology Impressions: 2 views of the chest History: COUGH X1 WEEK, SHORTNESS OF BREATH Comparison: None available No focal consolidation, pleural effusion or pneumothorax. Heart is normal in size. Thoracic spine degenerative changes. Widening of the right acromioclavicular joint space. Small calcified lung nodular densities may be sequela of granulomatous disease. Impression: 1. No focal consolidation or pleural effusion 2. Widening of the right acromioclavicular joint space with deformity of the right distal clavicle is of indeterminate etiology and chronicity Electronically signed on May 09, 2018 9:48:24 AM BATTERY CONTAINER INSPECTOR by: Teresita Au General Adult Physical Exam - PHYSICAL EXAM GENERAL APPEARANCE: no distress EENT: eye inspection normal, no signs of dehydration NECK: normal inspection RESPIRATORY: no resp distress, chest non-tender, wheezes (exp- diffuse ) CVS: reg rate & rhythm, heart sounds normal ABDOMEN: soft, normal bowel sounds, no distension, non-tender BACK: normal inspection SKIN: warm/dry, normal color EXTREMITIES: non-tender NEURO: oriented X3 Discharge Clincal Impression: Cough Referrals: Primary Doctor,No [Primary Care Provider] - 2 Days Comments: 1. Ipratroprium /Albuterol in neb every 4 hours as needed for cough 2. Tessalon Pearls 100 mg take 1 by mouth every 8 hours as needed for cough 3. Medrol dose pack - as directed 4. OTC meds as directed for symptom control 5. Follow up with PCP in 2-4 days 6. Return to ER for any concerns Condition: Stable Disposition: 01 HOME, SELF-CARE Decision to Admit: NO Date of Decison to Admit: 05/09/18 Decision Time: 09:53
[2018-05-09] MEDS ORDERED: IPRATROPIUM/ALBUTEROL SULFATE 3 ML AMPUL.NEB NEB ONE (08:47)
[2018-05-09 10:21] VITALS: BP 159/81
--- NOTE | 2018-05-09 18:25 | Diagnostic Imaging Report ---
JJ ESTRELLA [facility] [id number] [facility] [address] [place], [place]. [address] Report Submission Date: May 09, 2018 9:48:24 AM ELECTRONIC DESIGN ENGINEER Patient Study Name: STEPHEN AZUL Date: May 09, 2018 9:16:25 AM ELECTRONIC DESIGN ENGINEER Modality Type: DX Gender: M Description: CHEST 2VIEW : 63 Institution: [facility] Physician: JJ ESTRELLA 2 views of the chest History: COUGH X1 WEEK, SHORTNESS OF BREATH Comparison: None available No focal consolidation, pleural effusion or pneumothorax. Heart is normal in size. Thoracic spine degenerative changes. Widening of the right acromioclavicular joint space. Small calcified lung nodular densities may be sequela of granulomatous disease. Impression: 1. No focal consolidation or pleural effusion 2. Widening of the right acromioclavicular joint space with deformity of the right distal clavicle is of indeterminate etiology and chronicity Electronically signed on May 09, 2018 9:48:24 AM ELECTRONIC DESIGN ENGINEER by: Teresita YATES
== END 2018-05-09 10:16 | disposition home or self-care (01) ==
LOC: ED 08:10
DX: R05 Cough (principal); Z72.0 Tobacco use
CPT/HCPCS: 71046; 94640; 99283